=== PATIENT | male | born 1975 | race Caucasian/White ===

== ENCOUNTER 2020-07-15 13:03 | Outpatient (CLI) | payer OTHER, SELFPAY ==
--- NOTE | 2020-07-15 15:00 | NEURO_ITS ---
Patient Number: [id number] Impression: # Complains of numbness of hands, left more than right. # Bilateral Carpal Tunnel Syndrome, left more than right. # No ulnar neuropathy. # Normal needle/EMG exam. # Clinical correlation recommended. Nerve Conduction Studies Anti Sensory Summary Table Stim Site NR Peak (ms) P-T Amp (?V) Site1 Site2 Delta-P (ms) Dist (cm) [place] (m/s) Left Median Anti Sensory (2-3nd Digit) Wrist 3.7 48.6 Wrist 2-3nd Digit 3.7 14.0 38 Wrist 3.3 47.5 Wrist 2-3nd Digit 3.7 14.0 38 Right Median Anti Sensory (2-3nd Digit) Wrist 3.0 32.8 Wrist 2-3nd Digit 3.0 14.0 47 Wrist 2.8 27.9 Wrist 2-3nd Digit 3.0 14.0 47 Left Radial Anti Sensory (Base 1st Digit) Wrist 2.0 24.9 Wrist Base 1st Digit 2.0 0.0 Right Radial Anti Sensory (Base 1st Digit) Wrist 2.3 8.6 Wrist Base 1st Digit 2.3 0.0 Left Ulnar Anti Sensory (5th Digit) Wrist 2.6 84.5 Wrist 5th Digit 2.6 14.0 54 Right Ulnar Anti Sensory (5th Digit) Wrist 2.6 43.0 Wrist 5th Digit 2.6 14.0 54 Motor Summary Table Stim Site NR Onset (ms) O-P Amp (mV) Site1 Site2 Delta-0 (ms) Dist (cm) [place] (m/s) Left Median Motor (Abd Poll Brev) Wrist 4.4 0.7 Elbow Wrist 4.8 28.0 58 Elbow 9.2 0.5 Right Median Motor (Abd Poll Brev) Wrist 3.9 1.9 Elbow Wrist 4.5 28.0 62 Elbow 8.4 1.9 Left Ulnar Motor (Abd Dig Minimi) Wrist 2.3 6.1 A Elbow Wrist 4.9 30.0 61 A Elbow 7.2 4.9 Right Ulnar Motor (Abd Dig Minimi) Wrist 2.2 7.5 A Elbow Wrist 4.8 30.0 63 A Elbow 7.0 5.5 F Wave Studies NR F-Lat (ms) L-R F-Lat (ms) Left Median (Mrkrs) (Abd Poll Brev) 29.22 0.00 Right Median (Mrkrs) (Abd Poll Brev) 29.22 0.00 Left Ulnar (Mrkrs) (Abd Dig Min) 28.97 0.92 Right Ulnar (Mrkrs) (Abd Dig Min) 28.05 0.92 EMG Side Muscle Nerve Root Ins Act Fibs Amp Dur Recrt Comment Right 1stDorInt Ulnar C8-T1 Nml Nml Nml Nml Nml Right Ext Indicis Radial (Post Int) C7-8 Nml Nml Nml Nml Nml Right Ext Digitorum Radial (Post Int) C7-8 Nml Nml Nml Nml Nml Right BrachioRad Radial C5-6 Nml Nml Nml Nml Nml Right PronatorTeres Median C6-7 Nml Nml Nml Nml Nml Right Abd Poll Brev Median C8-T1 Nml Nml Nml Nml Nml Left 1stDorInt Ulnar C8-T1 Nml Nml Nml Nml Nml Left Ext Indicis Radial (Post Int) C7-8 Nml Nml Nml Nml Nml Left Ext Digitorum Radial (Post Int) C7-8 Nml Nml Nml Nml Nml Left BrachioRad Radial C5-6 Nml Nml Nml Nml Nml Left PronatorTeres Median C6-7 Nml Nml Nml Nml Nml Left Abd Poll Brev Median C8-T1 Nml Nml Nml Nml Nml Right ABD Dig Min Ulnar C8-T1 Nml Nml Nml Nml Nml Left ABD Dig Min Ulnar C8-T1 Nml Nml Nml Nml Nml MTDD
== END 2020-07-15 13:04 | disposition home or self-care (01) ==
LOC: ANHNEURO 13:06
PROVIDERS: PCP Internal Medicine; Visit Provider Orthopaedic Surgery
DX: R20.8 Other disturbances of skin sensation (principal); G56.03 Carpal tunnel syndrome, bilateral upper limbs
CPT/HCPCS: 95886; 95911

== ENCOUNTER 2020-09-01 07:51 | Outpatient (CLI) | payer OTHER, SELFPAY ==
--- NOTE | ~2020-09-01 | US_ITS ---
EXAMINATION: US right upper quadrant EXAM DATE: 09/01/2020 08:27 INDICATION: K82.8 Other specified diseases of gallbladder. TECHNIQUE: Multiple grayscale and Doppler images of the abdomen right upper quadrant were obtained (b y a technologist who performed the scan) and subsequently reviewed. There is no prior study for prabha weston. FINDINGS: The pancreatic head and body are normal in appearance. The pancreatic tail is not visualized. The l iver has normal echogenicity and contour. There are no focal liver lesions identified. There is no evidence of intrahepatic biliary duct dilation. Portal venous flow was seen in the hepatopedal, nor mal direction and has normal Doppler waveform. No right-sided hydronephrosis. Common bile duct measures 3 mm, which is normal. The gallbladder wall is normal in thickness, with ex pected amount of distention. No sonographic evidence of pericholecystic fluid. There is no cholelit hiases. Technologist performing exam reports patient did not demonstrate sonographic Monroy's sign. Please note that this sign is less reliable in patients who have received pain medication. IMPRESSION: 1. Unremarkable abdominal ultrasound exam. Reviewed, dictated and finalized at location B. GNER
== END 2020-09-01 07:52 | disposition home or self-care (01) ==
PROVIDERS: PCP Internal Medicine; Visit Provider Internal Medicine
DX: K82.8 Other specified diseases of gallbladder (principal)
CPT/HCPCS: 76705

== ENCOUNTER 2021-01-04 11:22 | Outpatient (CLI) | payer OTHER, SELFPAY ==
--- NOTE | ~2021-01-04 | XR_ITS ---
EXAMINATION: XR abdomen/kub 1V INDICATION: Passed right ureteral Stone, evaluate for additional urolithiasis TECHNIQUE: Supine views of the abdomen were obtained on 2 radiographs. COMPARISON: 12/13/2018 FINDINGS: A 6 mm stone projects in the left kidney upper pole. No definite additional urolithiasis is identified. Phleboliths are noted in the pelvis. Surgical clips in the right upper quadrant are like ly from prior cholecystectomy. The bowel gas pattern is normal. IMPRESSION: 1. Left nephrolithiasis. Reviewed, dictated and finalized at location A. [employer] IMPRESSION: 1. Left nephrolithiasis.
== END 2021-01-04 11:23 | disposition home or self-care (01) ==
LOC: ANHIMG 11:30
PROVIDERS: PCP Internal Medicine; Visit Provider Urology
DX: N20.0 Calculus of kidney (principal)
CPT/HCPCS: 74018

== ENCOUNTER 2021-01-07 11:15 | Outpatient (CLI) | payer OTHER, SELFPAY ==
[2021-01-07 11:50] LABS: INR 0.9; Prothrombin Time 12.7 Seconds (11.1-14.7)
[2021-01-07 11:51] LABS: Partial Thromboplastin Time 29.9 SECONDS (22.3-36.8)
== END 2021-01-07 11:16 | disposition home or self-care (01) ==
LOC: ANHSURGERY 11:17
PROVIDERS: PCP Internal Medicine; Visit Provider Urology
DX: Z01.812 Encounter for preprocedural laboratory examination (principal); N20.0 Calculus of kidney; Z51.81 Encounter for therapeutic drug level monitoring; Z79.899 Other long term (current) drug therapy
CPT/HCPCS: 36415; 85610; 85730; 87086

== ENCOUNTER → 2021-01-11 00:36 | Outpatient (CLI) | payer OTHER, SELFPAY ==
[2021-01-11 18:32] LABS: SARS-CoV-2 RNA PCR Negative
== END ==
PROVIDERS: PCP Internal Medicine; Visit Provider Urology
DX: Z01.812 Encounter for preprocedural laboratory examination (principal); Z20.822 Contact with and (suspected) exposure to COVID-19
CPT/HCPCS: C9803; U0003; U0005

== ENCOUNTER 2021-01-14 01:04 | Day surgery (SDC) | payer OTHER, SELFPAY ==
[2021-01-06 13:26] VITALS: BMI 29.0
--- NOTE | 2021-01-10 07:55 | P.HP_ITS ---
History of Present Illness History of Present Illness Consent: Risks, benefits, and alternatives have been discussed and questions answered. Patient agrees to proceed with procedure. Chief complaint: left renal stone Narrative: Zac Bar is a 45 year old male who is well known to our practice with multiple recurrent stones in the past. He recently presented with intermittent flank pain and imaging reveals a 6 millimeter left renal calculus. After discussion of therapeutic options he has elected to proceed with left ESWL. Review of Systems Cardiovascular: Cardiovascular: Denies chest pain, Denies lightheadedness, Denies palpitations and Denies dyspnea Respiratory: Respiratory: Denies dyspnea Gastrointestinal: Gastrointestinal: Denies diarrhea, Denies nausea and Denies vomiting Genitourinary: Genitourinary: Denies hematuria and Denies dysuria Endocrine: Endocrine: Denies palpitations PMFSH Family History Family History Mother Family history of malignant neoplasm of cervix, Onset Age: 46 Father Diabetes mellitus Family history of obesity Hypertension Patient's father is in good health Social History Social History Smoking packs per day: 1 Smoking cigarettes per day: 20.0 Years smoked: 7 Smoking pack-years: 7.00 Smoking status: Former smoker Tobacco type: cigarettes Smoking end date: 10/29/00 Alcohol intake: current Substance use: never Substance use type: does not use Spiritual care concerns: No Meds Home Medications and Allergies Home Medications Medication Instructions Recorded Confirmed Type omeprazole 40 mg capsule,delayed 40 mg PO DAILY 12/30/19 01/06/21 History release topiramate 200 mg tablet 200 mg PO DAILY 12/30/19 01/06/21 History venlafaxine 150 mg tablet,extended 150 mg PO DAILY 12/30/19 01/06/21 History release 24 hr venlafaxine 75 mg tablet,extended 75 mg PO DAILY 12/30/19 01/06/21 History release 24 hr clonazepam 0.5 mg tablet 0.5 mg PO DAILY PRN 02/24/20 01/06/21 History dextroamphetamine-amphetamine ER 15 mg PO DAILY #30 cap 12/27/20 01/06/21 Rx 15 mg 24hr capsule,extend release multivitamin 1 tablet PO DAILY 01/06/21 01/06/21 History Allergies Allergy/AdvReac Type Severity Reaction Status Date / Time No Known Allergies Allergy Verified 01/06/21 13:24 Assessment and Plan Assessment and plan (1) Left renal stone: Code(s): N20.0 - Calculus of kidney Status: Acute Assessment and Plan: * Left ESWL
[2021-01-14] VITALS (7 sets, daily range): BP systolic 102–134; BP diastolic 55–86; PULSE 70–103; RESP 11–18; TEMP 36.1–36.6; O2SAT 99–100
--- NOTE | ~2021-01-14 | XR_ITS ---
EXAMINATION: XR abdomen/kub 1V DATE: 01/14/2021 07:41 INDICATION: Kidney stone. TECHNIQUE: A single supine view of the abdomen on 2 radiographs was obtained. COMPARISON: Abdomen radiographs 01/04/2021, CT abdomen and pelvis 11/30/2018 FINDINGS: There are no dilated loops of bowel. There are phleboliths in the pelvis. Surgical clips in the right upper quadrant are likely from cholecystectomy. There is a 6 mm stone in left kidney. IMPRESSION: 1. 6 mm stone in left kidney. Reviewed, dictated and finalized at location A.
[2021-01-14] MEDS: LACTATED RINGERS 1,000 ML 30 ML IV CONT (08:00)
--- NOTE | 2021-01-14 08:18 | WPDHPUPDATE1 ---
History and Physical Update Update Date/Time: 01/14/21 08:18 History and Physical has been reviewed, including an updated exam of the patient. There are NO changes in the patient's condition. Risks, benefits, and alternatives have been discussed and questions answered. Patient agrees to proceed with procedure.
--- NOTE | 2021-01-14 08:45 | WPDANESEPPF ---
Anes - Initial Pre Proc Eval Procedure: Operation Date: 01/14/21 09:30 Proposed Procedures p Left Renal Extracorporeal Shock Wave Lithotripsy - Fred Breaux MD Date/Time: 01/14/21 08:45 Surgeon: Fred Breaux MD Pre Op Diagnosis: left renal stone Patient Data Age: 45 Gender: M Height: 5 ft 7 in Weight: 87.4 kg Last Vital Signs Temp 97.8 F 01/14/21 08:12 Pulse 86 01/14/21 08:12 Resp 18 01/14/21 08:12 BP 102/55 L 01/14/21 08:12 Pulse Ox 100 01/14/21 08:12 Allergies Allergy/AdvReac Type Severity Reaction Status Date / Time No Known Allergies Allergy Verified 01/14/21 08:15 Home Medications Medication Instructions Recorded Confirmed Type omeprazole 40 mg capsule,delayed 40 mg PO DAILY 12/30/19 01/14/21 History release topiramate 200 mg tablet 200 mg PO DAILY 12/30/19 01/14/21 History venlafaxine 150 mg tablet,extended 150 mg PO DAILY 12/30/19 01/14/21 History release 24 hr venlafaxine 75 mg tablet,extended 75 mg PO DAILY 12/30/19 01/14/21 History release 24 hr clonazepam 0.5 mg tablet 0.5 mg PO DAILY PRN 02/24/20 01/14/21 History dextroamphetamine-amphetamine ER 15 mg PO DAILY #30 cap 12/27/20 01/14/21 Rx 15 mg 24hr capsule,extend release multivitamin 1 tablet PO DAILY 01/06/21 01/14/21 History Patient hx anesthesia problems: none Family hx anesthesia problems: none PMFSH Past Medical History Medical History (Updated 01/14/21 @ 08:46 by Ollie Haywood MD) Attention deficit hyperactivity disorder (ADHD), predominantly hyperactive impulsive type Migraine Family History Family History Mother Family history of malignant neoplasm of cervix, Onset Age: 46 Father Diabetes mellitus Family history of obesity Hypertension Patient's father is in good health Social History Social History Smoking packs per day: 1 Smoking cigarettes per day: 20.0 Years smoked: 7 Smoking pack-years: 7.00 Smoking status: Former smoker Tobacco type: cigarettes Smoking end date: 10/29/00 Alcohol intake: current Alcohol use details: SOCIAL - COUPLE A MONTH Substance use: never Substance use type: does not use Living arrangements: with family Spiritual care concerns: No Anes - Eval Final PreProcedure Day of Procedure 01/14/21 08:45 Patient weight: obese Heart: regular rate and rhythm Lungs: clear to auscultation Airway: Mallampati scale class II Neurological: alert and oriented Last oral intake: >/= 8 hours ASA classification: III Anesthetic plan: proceed Anesthesia type and monitoring: general LMA and standard monitoring Informed Consent: The patient's anesthetic plan and its attendant risks and benefits were discussed with the patient/family/POA. Questions were solicited and answers provided to the satisfaction of the patient/family/POA.
[2021-01-14] MEDS: ceFAZolin 2 GM/D5W 50 ML 2 GM/50 ML BAG IVPB (09:43)
--- NOTE | 2021-01-14 10:01 | PM.PROC ---
Procedure Note - Detailed Date of procedure: 01/14/21 Pre-op diagnosis: left renal stone Post-op diagnosis: same Procedure performed: Left ESWL Description of procedure: The patient was brought to the operative suite where he was placed in the supine position on the Dornier lithotripsy table. The focal point of the lithotripter was placed at a 6mm left renal calculus. A total of 2500 shocks were delivered at a power setting of 4. There appeared to be good fragmentation of the stone. The patient tolerated the procedure well and was taken to the recovery room in good condition. Anesthesia: GLMA Surgeon: Fred Breaux MD Estimated blood loss (mL): 0 Drains: No Packing: No Pathology: none sent Complications: No immediate complications Condition: stable Disposition: PACU
== END 2021-01-14 12:02 | disposition home or self-care (01) ==
PROVIDERS: PCP Internal Medicine; Visit Provider Urology
PROC: (CPT 50590; principal; 2021-01-14 09:30)
DX: N20.0 Calculus of kidney (principal); Z87.891 Personal history of nicotine dependence
CPT/HCPCS: 50590; 36415; 74018; 85610; 85730; 87086; C9803; J0690; J1100; J2250; J2405; J2704; J3010; J7120; U0003; U0005

== ENCOUNTER 2021-01-31 10:01 | Outpatient (CLI) | payer OTHER, SELFPAY ==
--- NOTE | ~2021-01-31 | XR_ITS ---
EXAMINATION: XR abdomen/kub 1V DATE: 01/31/2021 10:18 INDICATION: Left renal stone TECHNIQUE: A supine view of the abdomen on 2 radiographs was obtained. COMPARISON: 01/14/2021 FINDINGS: A prior 6 mm left renal stone is no longer visualized and likely sequela of interval lithotripsy. No other stones/stone fragment seen in the region of either the left or right kidneys or along the cours e of the left or right ureters. A couple unchanged phleboliths in the pelvis. Cholecystectomy clips i n right upper quadrant. Normal bowel gas pattern. IMPRESSION: 1. 6 mm left renal stone no longer visualized. See. No evident residual nephrolithiasis. Reviewed, dictated and finalized at location B. IMPRESSION: 1. 6 mm left renal stone no longer visualized. See. No evident residual nephrol ithiasis.
== END 2021-01-31 10:02 | disposition home or self-care (01) ==
LOC: ANHIMG 10:05
PROVIDERS: PCP Internal Medicine; Visit Provider Urology
DX: N20.0 Calculus of kidney (principal)
CPT/HCPCS: 74018

== ENCOUNTER 2021-02-08 07:43 | Outpatient (CLI) | payer OTHER, SELFPAY ==
--- NOTE | ~2021-02-08 | CT_ITS ---
EXAMINATION: CT abdomen pelvis wo con DATE: 02/08/2021 08:04 INDICATION: Right ureteral stone TECHNIQUE: Computed tomography (CT) of the abdomen and pelvis was performed without intravenous contr ast. The dose-length product (DLP) was 279.58 mGy-cm. Automated exposure control and iterative recons truction technique were employed. COMPARISON: 11/30/2018 FINDINGS: The lung bases are clear. The heart size is normal. Surgical changes in the stomach are con sistent with bariatric surgery. The gallbladder is surgically absent. The liver, spleen, pancreas, an d adrenal glands are normal. The right kidney is unremarkable. There is a 2 mm nonobstructing stone i n the upper pole of the left kidney. No stones are present in ureters or bladder. There is no hydrone phrosis or hydroureter. No pathologically enlarged abdominal or pelvic lymph nodes are identified. Th ere is no free intraperitoneal gas or evidence of bowel obstruction. There is mild lumbar spondylosis . IMPRESSION: 1. 2 mm nonobstructing stone of the left kidney upper pole. Reviewed, dictated and finalized at location B.
== END 2021-02-08 07:44 | disposition home or self-care (01) ==
PROVIDERS: PCP Internal Medicine; Visit Provider Urology
DX: N20.2 Calculus of kidney with calculus of ureter (principal)
CPT/HCPCS: 74176

== ENCOUNTER 2021-07-27 18:21 | Emergency (ER) | payer OTHER, SELFPAY ==
--- NOTE | ~2021-07-27 | XR_ITS ---
EXAMINATION: XR tibia fibula RT 2V INDICATION: Soft tissue foreign body of the leg TECHNIQUE: Two views of the right tibia and fibula are obtained. COMPARISON: None available FINDINGS: No definite radiopaque foreign body is identified. Bone alignment is normal. There is no fr acture. IMPRESSION: 1. No definite radiopaque foreign body identified. Reviewed, dictated and finalized at location A.
[2021-07-27 18:29] VITALS: BP 125/87; PULSE 88; RESP 16; TEMP 36.7; O2SAT 100
--- NOTE | 2021-07-27 19:07 | ED.GENADULT ---
HPI - General Adult General Chief complaint: Extremity Problem,Nontraumatic Stated complaint: Wound on right leg Time Seen by Provider: 07/27/21 19:00 Source: patient, family, RN notes reviewed and old records reviewed Mode of arrival: ambulatory Limitations: no limitations History of Present Illness HPI narrative: 46-year-old male who presents to [facility] with complaints of mowing this evening and having a piece of stick or straw impaled into his right lateral mid lower leg. Patient states he is tried to remove it on his own but when he pulls on it it is very painful and he is unable to get it out of the skin. Appears to be a piece of vegetation like straw but is into the skin and can't be easily removed by pulling on it without causing pain. Patient states that his tetanus shot is not up to date and refuses booster today. MD complaint: Foreign body right leg Related Data Home Medications Medication Instructions Recorded Confirmed omeprazole 40 mg capsule,delayed 40 mg PO DAILY 12/30/19 07/27/21 release topiramate 200 mg tablet 200 mg PO DAILY 12/30/19 07/27/21 venlafaxine 150 mg tablet,extended 150 mg PO DAILY 12/30/19 07/27/21 release 24 hr clonazepam 0.5 mg tablet 0.5 mg PO DAILY PRN 02/24/20 07/27/21 multivitamin 1 tablet PO DAILY 01/06/21 07/27/21 Allergies Allergy/AdvReac Type Severity Reaction Status Date / Time No Known Allergies Allergy Verified 07/27/21 18:32 Review of Systems Review of Systems: CONSTITUTIONAL: Denies fever, chills, or sweats. EYES: Denies visual changes, redness, or discharge. ENT: Denies rhinorrhea, congestion, sore throat, or otalgia. CARDIOVASCULAR: Denies chest pain, palpitations, or edema. RESPIRATORY: Denies cough or dyspnea. GASTROINTESTINAL: Denies abdominal pain, nausea, vomiting, or diarrhea. GENITOURINARY: Denies dysuria or hematuria. SKIN: Denies rash or itching. impaled piece of straw or vegetation into right mid lower leg MUSCULOSKELETAL: Denies back pain, joint pain, or myalgia. NEUROLOGIC: Denies headache, numbness, or weakness. PSYCHIATRIC: Positive history of anxiety or depression. All systems reviewed & are unremarkable except as noted in HPI and below PMFSH Past Medical History Medical History (Updated 07/30/21 @ 16:52 by Essence Menendez NP) Anxiety and depression Attention deficit hyperactivity disorder (ADHD), predominantly hyperactive impulsive type Kidney stone Migraine Surgical History Surgical History (Updated 07/30/21 @ 16:59 by Essence Menendez NP) H/O gastric sleeve H/O lithotripsy H/O sinus surgery History of rhinoplasty History of thumb surgery fracture repair Family History Family History Mother Family history of malignant neoplasm of cervix, Onset Age: 46 Father Diabetes mellitus Family history of obesity Hypertension Patient's father is in good health Social History Social History Smoking packs per day: 1 Smoking cigarettes per day: 20.0 Years smoked: 7 Smoking pack-years: 7.00 Tobacco type: cigarettes Smoking end date: 10/29/00 Alcohol intake: current Alcohol use details: SOCIAL - COUPLE A MONTH Substance use: never Substance use type: does not use Spiritual care concerns: No Comments At time of signature, agree with nursing past medical, surgical, social and family history. There is no relevant family history pertinent to the presenting complaint Exam Narrative: GENERAL: Well-appearing, well-nourished, and in no acute distress.ANXIOUS HEAD: Normocephalic, atraumatic. EYES: PERRLA and EOMI. ENT: Nares clear, no rhinorrhea or epistaxis. Mucous membranes moist.TM's normal, throat pink with no lesions or swelling NECK: Supple. CHEST: Clear to auscultation. No respiratory distress.SAO2 100% on room air, no tachypnea or labored respirations HEART: Regular rate and rh
== END 2021-07-27 19:47 | disposition home or self-care (01) ==
PROVIDERS: Emergency Provider Registered Nurse; PCP Internal Medicine
DX: S81.841A Puncture wound with foreign body, right lower leg, initial encounter (principal); W45.8XXA Other foreign body or object entering through skin, initial encounter; F17.210 Nicotine dependence, cigarettes, uncomplicated; F41.9 Anxiety disorder, unspecified; F32.9 Major depressive disorder, single episode, unspecified
CPT/HCPCS: 73590; 99213; G0463

== ENCOUNTER 2021-08-09 18:36 | Emergency (ER) | payer OTHER, SELFPAY ==
--- NOTE | ~2021-08-09 | CT_ITS ---
EXAMINATION: CT abdomen pelvis wo con DATE: 08/09/2021 19:39 INDICATION: Left flank pain. TECHNIQUE: Computed tomography (CT) of the abdomen and pelvis was performed without intravenous contr ast. Automated exposure control and iterative reconstruction technique were employed. The dose-length product was 289.69 mGy-cm. COMPARISON: CT abdomen and pelvis 02/08/2021 FINDINGS: The visualized portions of the lung bases demonstrate mild atelectasis. No pleural effusion . The heart size is normal. No pericardial effusion. There are surgical changes in the stomach. The l iver and spleen are normal. There are changes of cholecystectomy. The pancreas, adrenal glands, and r ight kidney are normal. There is a 3 mm stone in left kidney. There is moderate left hydronephrosis a nd hydroureter. There is a 3 mm stone in proximal left ureter. There are no dilated loops of bowel. T he appendix is normal. There are no pathologically enlarged lymph nodes. There is no free intraperito amanda fluid. There is mild chronic anterior wedging of multiple thoracic vertebral bodies. There is mi ld thoracolumbar spondylosis. IMPRESSION: 1. 3 mm stone in proximal left ureter with moderate left hydronephrosis and hydroureter. 2. 3 mm nonobstructing left kidney stone. Reviewed, dictated and finalized at location A. IMPRESSION: 1. 3 mm stone in proximal left ureter with moderate left hydronephrosis and hyd roureter. 2. 3 mm nonobstructing left kidney stone.
[2021-08-09 18:47] VITALS: BP 141/97; PULSE 86; RESP 16; TEMP 36.6; O2SAT 100
[2021-08-09 19:04] LABS: Basophils Percent Auto 0.3 % (0.2-1.2); Eosinophils Absolute Auto 0.1 K/mm3 (0-0.3); Eosinophils Percent Auto 0.7 % (0-4.4); Immature Granulocyte Absolute 0.04 K/mm3 (0.00-0.031); Immature Granulocyte Percent A 0.3 % (0-0.5); Lymphocytes Absolute Auto 1.55 K/mm3 (0.9-3.2); Lymphocytes Percent Auto 11.7 % (18.3-44.2); Mean Corpuscular Hemoglobin 31.6 pg (26-34); Mean Corpuscular Volume 92.9 fl (80-100); Mean Platelet Volume 9.1 fl (7.4-10.4); Monocytes Absolute Auto 0.8 K/mm3 (0.1-0.6); Monocytes Percent Auto 6.3 % (2.6-8.5); Neutrophils Absolute Auto 10.7 K/mm3 (1.3-6.7); Neutrophils Percent Auto 80.7 % (45.5-73.1); Platelet Count Result 253 k/mm3 (150-375); Red Blood Count 5.06 M/mm3 (4.6-6.20); Red Cell Distribution Width 13.2 % (11.5-14.5); White Blood Count 13.3 K/mm3 (4.5-10.0)
--- NOTE | 2021-08-09 19:16 | ED.ABDPAIN ---
HPI - Abdominal Pain General Chief Complaint: Abdominal Pain Stated Complaint: left flank pain Time Seen by Provider: 08/09/21 19:14 Source: patient Mode of arrival: ambulatory Limitations: no limitations History of Present Illness HPI narrative: 46-year-old male history of renal stones complaining of sudden onset of left flank pain approximately 10 AM today. Pain constant, colicky, rating to the left lower quadrant. No hematuria no dysuria no vomiting no fever. Patient states he seen urology for kidney stones but no stents in the past. MD elicited complaint: flank pain Pertinent past history: kidney stones Onset (ago): hour(s) (9) Pain Consistency: constant Location: LLQ and L flank Severity: similar to previous episodes Quality: sharp Radiation: LLQ Exacerbating factors: nothing Relieving factors: other (Hydrocodone without relief.) Associated symptoms: nausea Treatments prior to arrival: prescription analgesics (hydrocodone) Related Data Home Medications Medication Instructions Recorded Confirmed omeprazole 40 mg capsule,delayed 40 mg PO DAILY 12/30/19 08/25/21 release topiramate 200 mg tablet 200 mg PO DAILY 12/30/19 08/25/21 venlafaxine 150 mg tablet,extended 150 mg PO DAILY 12/30/19 08/25/21 release 24 hr clonazepam 0.5 mg tablet 0.5 mg PO DAILY PRN 02/24/20 08/25/21 multivitamin 1 tablet PO DAILY 01/06/21 08/25/21 Allergies Allergy/AdvReac Type Severity Reaction Status Date / Time No Known Allergies Allergy Verified 08/25/21 10:14 Review of Systems Review of Systems: CONSTITUTIONAL: no fever, no weight loss, no confusion EYES: no vision changes, no eye pain ENT: no rhinorrhea, no sore throat, no difficulty swallowing CARDIOVASCULAR: no chest pain, no leg edema, no palpitations RESPIRATORY: no cough, no shortness of breath, no hemoptysis GASTROINTESTINAL: no abdominal pain, positive for nausea, no vomiting, no diarrhea GENITOURINARY: L flank pain, no dysuria, no hematuria SKIN: no rash, no jaundice MUSCULOSKELETAL: no back pain, no trauma. NEUROLOGIC: No headache, no dizziness, no focal weakness PSYCHIATRIC: No hallucinations, no suicidal ideation PMFSH Past Medical History Medical History Anxiety and depression Attention deficit hyperactivity disorder (ADHD), predominantly hyperactive impulsive type Kidney stone Migraine Surgical History Surgical History H/O gastric sleeve H/O lithotripsy H/O sinus surgery History of rhinoplasty History of thumb surgery fracture repair Family History Family History Mother Family history of malignant neoplasm of cervix, Onset Age: 46 Father Diabetes mellitus Family history of obesity Hypertension Patient's father is in good health Social History Social History Smoking packs per day: 1 Smoking cigarettes per day: 20.0 Years smoked: 7 Smoking pack-years: 7.00 Smoking status: Former smoker Tobacco type: cigarettes Smoking end date: 10/29/00 Alcohol intake: current Alcohol use details: SOCIAL - COUPLE A MONTH Substance use: never Substance use type: does not use Spiritual care concerns: No Exam Narrative: General: alert, afebrile, answering all questions appropriately Head: normocephalic, atraumatic Eyes: EOMI bilaterally, anicteric, no injection ENT: moist mucous membranes, oropharynx patent, no rhinorrhea Neck: supple, trachea midline, no JVD Chest: equal chest rise bilaterally, no chest wall trauma noted Lungs: clear to auscultation bilaterally, respirations unlabored CV: regular rate, no TARAH B, calf size equal bilaterally Abd: soft, non-distended, non-tender, no rebound, no gaurding : L CVA tenderness, bladder non-distended Back: no lumbar bony tenderness. paraspinal muscles without spasm E
[2021-08-09 19:19] VITALS: BP 121/88; PULSE 90; RESP 18; O2SAT 100
[2021-08-09 19:31] LABS: Anion Gap 7 mmol/L (8-16); Blood Urea Nitrogen 17 mg/dL (9-20); Calcium 9.1 mg/dL (8.4-10.2); Carbon Dioxide 27 mmol/L (22-30); Chloride 109 mmol/L (98-107); Estimated CRCL calculation 67 ml/min; Estimated Glomerular Filt Rate > 60; Glucose 108 mg/dL (65-110); Potassium 4.4 mmol/L (3.4-5.0); Sodium 143 mmol/L (137-145)
[2021-08-09] MEDS: ONDANSETRON INJ 4 MG/2 ML VIAL IV PUSH (19:31)
[2021-08-09] MEDS: SODIUM CHLORIDE 0.9% IV 1,000 ML 999 ML IV CONT (19:31)
[2021-08-09] MEDS: KETOROLAC 30 MG/ML VIAL (*BKC) IV PUSH (19:31)
--- NOTE | 2021-08-09 20:52 | PC.NURSE ---
EDP at bedside.
--- NOTE | 2021-08-09 21:00 | PC.NURSE ---
Pt reports passing stone while using restroom. States his pain has resolved, rates 0/10.
[2021-08-09 21:01] VITALS: BP 134/85; PULSE 96; RESP 16; O2SAT 100
[2021-08-09 21:10] LABS: Add Urine Microscopic? YES; Appearance Urine Clear (Clear); Bilirubin Urine Negative (Negative); Blood Urine 2+ (Negative); Calcium Oxalate Crystals Urine Present /hpf; Color Urine Yellow (Yellow); Glucose Urine UA Negative (Negative); Ketones Urine Negative (Negative); Leukocyte Esterase Ur Negative LEU/UL (Negative); Mucus Urine Rare /lpf; Nitrate Urine Negative (Negative); Protein Urine 1+ mg/dL (Negative); RBC Urine 21-50 /hpf (0-2); Squamous Epithelial Cell Urine Rare /hpf (Few); WBC Urine 0-3 /hpf
== END 2021-08-09 19:30 | disposition home or self-care (01) ==
PROVIDERS: Emergency Provider Emergency Medicine; PCP Internal Medicine
DX: N20.1 Calculus of ureter (principal); F41.9 Anxiety disorder, unspecified; F32.9 Major depressive disorder, single episode, unspecified; Z87.442 Personal history of urinary calculi
CPT/HCPCS: 36415; 74176; 80048; 81001; 85025; 96361; 96374; 96375; 99284; J1885; J2405; J7030

== ENCOUNTER 2021-10-15 13:17 | Emergency (ER) | payer OTHER, SELFPAY ==
[2021-10-15 13:33] VITALS: BP 134/84; PULSE 94; RESP 16; TEMP 36.9; O2SAT 100
--- NOTE | 2021-10-15 13:59 | ED.URI ---
HPI - URI/Sore Throat General Chief Complaint: Upper Respiratory Infection Stated Complaint: Lt Ear Pain,Sore Throat Source: patient and RN notes reviewed Limitations: no limitations History of Present Illness HPI Narrative: The unvaccinated patient, a current non-smoker/ occ drinker, this was upper respiratory complaints. Patient states he has a 1 week history of scratchy sore throat, congestion with ear fullness; he had Covid disease pneumonia in the past and several negative rapid test this week. No fever, cough; no loss of taste/smell, CP, S OB, vomiting/diarrhea. Symptoms are mild Related Data Home Medications Medication Instructions Recorded Confirmed omeprazole 40 mg capsule,delayed 40 mg PO DAILY 12/30/19 10/15/21 release topiramate 200 mg tablet 200 mg PO DAILY 12/30/19 10/15/21 venlafaxine 150 mg tablet,extended 150 mg PO DAILY 12/30/19 10/15/21 release 24 hr clonazepam 0.5 mg tablet 0.5 mg PO DAILY PRN 02/24/20 10/15/21 multivitamin 1 tablet PO DAILY 01/06/21 10/15/21 Allergies Allergy/AdvReac Type Severity Reaction Status Date / Time No Known Allergies Allergy Verified 10/15/21 13:31 Review of Systems Review of Systems: General/Constitutional: No weight loss,fever Eyes: N0: Redness,discharge Ears/Nose/Throat: No: Epistaxis,ear discharge Respiratory: Denies: Hemoptysis Gastrointestinal: No Vomiting, Bleeding-rectal Skin: No Lumps, eruption Neurologic: No Focal Weakness,Sz Hematologic: Denies: Petechiae/Purpura Psychiatric: No: Suicida ideationl All Other Systems: Reviewed and Negative [facility] Past Medical History Medical History Anxiety and depression Attention deficit hyperactivity disorder (ADHD), predominantly hyperactive impulsive type Kidney stone Migraine Surgical History Surgical History H/O gastric sleeve H/O lithotripsy H/O sinus surgery History of rhinoplasty History of thumb surgery fracture repair Family History Family History Mother Family history of malignant neoplasm of cervix, Onset Age: 46 Father Diabetes mellitus Family history of obesity Hypertension Patient's father is in good health Social History Social History Smoking packs per day: 1 Smoking cigarettes per day: 20.0 Years smoked: 7 Smoking pack-years: 7.00 Smoking status: Former smoker Tobacco type: cigarettes Smoking end date: 10/29/00 Alcohol intake: current Alcohol use details: SOCIAL - COUPLE A MONTH Substance use: never Substance use type: does not use Spiritual care concerns: No Comments At time of signature, agree with nursing past medical, surgical, social and family history. There is no relevant family history pertinent to the presenting complaint Exam Narrative: General Appearance: Well appearing, Well nourished EYE: PERRLA, Conjunctiva clear Ears: Auditory canal normal, TM normal Nose: Rhinorrhea, Mucousal erythema Mouth/Throat: MM moist, Uvula midline, Pharyngeal erythema ] Neck: Supple, No adenopathy Respiratory: No respiratory distress, Breath sounds equal, Clear to auscultation Cardiovascular: RRR, No JVD Musculoskeletal: Non tender, Normal strength Skin: Warm, Dry Neurological: A&O x3, CN II-XII intact Psychiatric: Normal mood, Normal affect Course Vital Signs Vital signs: Vital Signs Temperature 98.4 F 10/15/21 13:33 Pulse Rate 94 10/15/21 13:33 Respiratory Rate 16 10/15/21 13:33 Blood Pressure 134/84 10/15/21 13:33 Pulse Oximetry 100 10/15/21 13:33 Temperature 98.4 F 10/15/21 13:33 Pulse Rate 94 10/15/21 13:33 Respiratory Rate 16 10/15/21 13:33 Blood Pressure 134/84 10/15/21 13:33 Pulse Oximetry 100 10/15/21 13:33 Discharge Plan Discharge Clinical Impression:
== END 2021-10-15 14:04 | disposition home or self-care (01) ==
PROVIDERS: Emergency Provider Emergency Medicine; PCP Internal Medicine
DX: R07.0 Pain in throat (principal); Z87.891 Personal history of nicotine dependence; F41.9 Anxiety disorder, unspecified; F32.A Depression, unspecified; Z98.84 Bariatric surgery status
CPT/HCPCS: 99213; G0463

== ENCOUNTER 2022-02-25 10:01 | Emergency (ER) | payer OTHER, SELFPAY ==
[2022-02-25 10:12] VITALS: BP 132/81; PULSE 91; RESP 18; TEMP 36.3; O2SAT 100
--- NOTE | 2022-02-25 10:21 | ED.GENADULT ---
HPI - General Adult General Chief complaint: Upper Respiratory Infection Stated complaint: nasal congestion,sorethroat Time Seen by Provider: 02/25/22 10:04 Source: patient Mode of arrival: ambulatory Limitations: no limitations History of Present Illness HPI narrative: Patient presents for evaluation of respiratory symptoms for the last week. Symptoms include sinus congestion, thick mucopurulent discharge from both nares, sore throat, occasional productive cough of yellow/green sputum. She denies any fever, chills, nausea, vomiting, chest pain, shortness of breath. 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 He had COVID in April of last year. He has not received flu nor COVID vaccine. He is a former smoker but quit 20 years ago. He has tried allergy medication and mucinex. He has also tried a [place] pot. He has temporary relief of symptoms with recurrence about ten mins after sinus irrigation. He took two home COVID tests, both of which were negative. He states he has had similar symptoms in the past and has always required abx therapy. Related Data Home Medications Medication Instructions Recorded Confirmed topiramate 200 mg tablet 200 mg PO HS 12/30/19 02/25/22 venlafaxine 150 mg tablet,extended 150 mg PO DAILY 12/30/19 02/25/22 release 24 hr Klonopin 02/25/22 dextroamphetamine-amphetamine 15 mg PO DAILY 02/25/22 02/25/22 [Adderall XR] omeprazole 40 mg PO DAILY 02/25/22 02/25/22 verapamil 02/25/22 Allergies Allergy/AdvReac Type Severity Reaction Status Date / Time No Known Allergies Allergy Verified 02/25/22 10:22 Review of Systems Review of Systems: CONSTITUTIONAL: Denies fever, chills, or sweats. EYES: Denies visual changes, redness, or discharge. ENT: Reports sinus congestion, thick mucopurulent discharge from nares and sore throat CARDIOVASCULAR: Denies chest pain, palpitations, or edema. RESPIRATORY: Reports occasional productive cough of thick yellow/green sputum. Denies dyspnea. GASTROINTESTINAL: Denies abdominal pain, nausea, vomiting, or diarrhea. GENITOURINARY: Denies dysuria or hematuria. SKIN: Denies rash or itching. MUSCULOSKELETAL: Denies back pain, joint pain, or myalgia. NEUROLOGIC: Denies headache, numbness, dizziness, or weakness. PSYCHIATRIC: Denies anxiety or depression. [facility]ENDING S[facility] TO [facility] Past Medical History Medical History Anxiety and depression Attention deficit hyperactivity disorder (ADHD), predominantly hyperactive impulsive type Kidney stone Migraine Surgical History Surgical History H/O gastric sleeve H/O lithotripsy H/O sinus surgery History of rhinoplasty History of thumb surgery fracture repair Family History Family History Mother Family history of malignant neoplasm of cervix, Onset Age: 46 Father Diabetes mellitus Family history of obesity Hypertension Patient's father is in good health Social History Social History Smoking packs per day: 1 Smoking cigarettes per day: 20.0 Years smoked: 7 Smoking pack-years: 7.00 Smoking status: Former smoker Tobacco type: cigarettes Smoking end date: 10/29/00 Alcohol intake: current Alcohol use details: SOCIAL - COUPLE A MONTH Substance use: never Substance use type: does not use Spiritual care concerns: No Exam Narrative: GENERAL: Well-appearing, well-nourished, and in no acute distress. HEAD: Normocephalic, atraumatic. EYES: PERRLA and EOMI. ENT: Nares clear, no rhinorrhea or epistaxis. Mucous membranes moist. Oropharynx without tonsillar hypertrophy exudate or other lesions. Bilateral TMs pearly velez nonbulging NECK: Supple. No adenopathy or masses. No carotid bruits or JVD CHEST: Clear to aus
== END 2022-02-25 10:35 | disposition home or self-care (01) ==
PROVIDERS: Emergency Provider Nurse Practitioner; PCP Internal Medicine
DX: J01.90 Acute sinusitis, unspecified (principal); Z87.891 Personal history of nicotine dependence
CPT/HCPCS: 87081; 87880; 99213; G0463

== ENCOUNTER → 2022-06-19 06:53 | Outpatient (CLI) | payer OTHER, SELFPAY ==
--- NOTE | ~2022-06-19 | MR_ITS ---
EXAMINATION: MR hip LT wo con DATE: 06/19/2022 07:50 INDICATION: Left groin pain TECHNIQUE: Magnetic resonance imaging (MRI) of the left hip was performed without intravenous contra st. Sequences included full-field axial PD-weighted FS FSE and T1-weighted FSE, coronal of the pelvis with PD-weighted FS FSE, T2-weighted FSE and T1-weighted FSE, small field of view of the left hip w ith axial PD-weighted FS FSE, sagittal PD-weighted FS FSE, coronal PD-weighted FS FSE and coronal T2 weighted FSE. Additional radial T1-weighted FGR oriented orthogonal to the acetabular rim were obtai desirae for evaluation of the labrum. COMPARISON: None FINDINGS: Bones/labrum/cartilage: Alignment is normal. No fracture, avascular necrosis or pathologic marrow replacing process. Labrum is normal. Mild partial-thickness cartilage loss anterosuperiorly at the left hip with smooth chondra l surface and without degenerative subchondral changes. Mild lower lumbar spondylosis. Fluid: Symmetric physiologic amount of fluid within both hip joints. No bursitis or other abnormal fluid col lections. Soft tissues: Normal and symmetric muscle bulk and signal in the pelvis and visualized proximal thighs. The iliopso as, gluteal and proximal hamstring tendons are normal. Limited evaluation of visceral organs of the p ramírez is unremarkable. No pathologically enlarged pelvic/inguinal lymphadenopathy. IMPRESSION: 1. Very mild left hip osteoarthritis. Reviewed, dictated and finalized at location A.
== END ==
PROVIDERS: PCP Internal Medicine; Visit Provider Orthopaedic Surgery
DX: M16.12 Unilateral primary osteoarthritis, left hip (principal)
CPT/HCPCS: 73721

== ENCOUNTER 2023-01-17 16:31 | Emergency (ER) | payer BC, SELFPAY ==
[2023-01-17 16:42] VITALS: BP 118/76; PULSE 106; RESP 16; TEMP 36.3; O2SAT 99
--- NOTE | 2023-01-17 17:05 | ED.WOUNDLAC ---
HPI - Wound/Laceration General Chief Complaint: Wound/Laceration Stated Complaint: forehead laceration,fall Time Seen by Provider: 01/17/23 16:50 Source: patient Mode of arrival: ambulatory Limitations: no limitations History of Present Illness HPI narrative: 47-year-old male presents with laceration to forehead. Reports that injury happened approximately 1 hour prior to arrival. States that he was putting something on to his trailer and the battery of his drill hit him in for head. Did not realize that he had a laceration and was bleeding until a little bit after injury occurred. Denies headache. No LOC. Denies dizziness. All systems reviewed and negative except as noted above. Related Data Home Medications Medication Instructions Recorded Confirmed topiramate 200 mg tablet (Topamax) 200 mg PO HS 12/30/19 01/17/23 venlafaxine 150 mg tablet,extended 150 mg PO DAILY 12/30/19 01/17/23 release 24 hr omeprazole 40 mg capsule,delayed 40 mg PO DAILY 02/25/22 01/17/23 release verapamil 150 mg PO DAILY 02/25/22 01/17/23 tirzepatide 5 mg/0.5 mL 5 mg subcut WEEKLY 10/09/22 01/17/23 subcutaneous pen injector (Mounjaro) metoprolol succinate 25 mg 25 mg PO DAILY 01/17/23 01/17/23 tablet,extended release 24 hr Allergies Allergy/AdvReac Type Severity Reaction Status Date / Time No Known Allergies Allergy Verified 01/17/23 16:46 Review of Systems Review of Systems: CONSTITUTIONAL: Denies fever, chills, or sweats. EYES: Denies visual changes, redness, or discharge. ENT: Denies rhinorrhea, congestion, sore throat, or otalgia. CARDIOVASCULAR: Denies chest pain, palpitations, or edema. RESPIRATORY: Denies cough or dyspnea. GASTROINTESTINAL: Denies abdominal pain, nausea, vomiting, or diarrhea. GENITOURINARY: Denies dysuria or hematuria. SKIN: Denies rash or itching. Reports laceration to forehead. MUSCULOSKELETAL: Denies back pain, joint pain, or myalgia. NEUROLOGIC: Denies headache, numbness, or weakness. PSYCHIATRIC: Denies anxiety or depression. All other systems reviewed are negative, except as documented in HPI. [facility] Past Medical History Medical History (Updated 01/17/23 @ 17:02 by Irena Dubois NP) Attention deficit hyperactivity disorder (ADHD), predominantly hyperactive impulsive type Kidney stone Migraine Surgical History Surgical History H/O gastric sleeve H/O lithotripsy H/O sinus surgery History of rhinoplasty History of thumb surgery fracture repair Family History Family History Mother Family history of malignant neoplasm of cervix, Onset Age: 46 Father Diabetes mellitus Family history of obesity Hypertension Patient's father is in good health Social History Social History (Updated 10/09/22 @ 14:31 by JADE Ibarra) Smoking packs per day: 1 Smoking cigarettes per day: 20.0 Years smoked: 7 Smoking pack-years: 7.00 Smoking status: Never smoker Tobacco type: cigarettes Smoking end date: 10/29/00 Alcohol intake: current Alcohol use details: SOCIAL - COUPLE A MONTH Substance use: never Substance use type: does not use Lack of Transportation: No Lack of Food: Never True Current Housing: I Have Housing Concerned About Future Housing: No Difficulty Paying Gas/Electric Bills: No Difficulty Paying for Meds: No Currently Unemployed: No Education: Bachelor's Degree Difficulty w/ Childcare or Family Care: No Living arrangements: with family Spiritual care concerns: No Comments At time of signature, agree with nursing past medical, surgical, social and family history. There is no relevant family history pertinent to the presenting complaint. Exam Narrative: GENERAL: This is a well-nourished, well-developed patient, in no apparent distress. HEAD: normocephalic, atraumatic. EYES: PE
== END 2023-01-17 17:04 | disposition home or self-care (01) ==
PROVIDERS: Emergency Provider Nurse Practitioner Family
DX: S01.81XA Laceration without foreign body of other part of head, initial encounter (principal); F17.210 Nicotine dependence, cigarettes, uncomplicated; W27.8XXA Contact with other nonpowered hand tool, initial encounter
CPT/HCPCS: 12011; 99212; G0463

== ENCOUNTER 2023-07-29 08:09 | Emergency (ER) | payer BC, SELFPAY ==
[2023-07-29 08:25] VITALS: BP 118/78; PULSE 93; RESP 18; TEMP 36.3; O2SAT 100
--- NOTE | 2023-07-29 08:54 | ED.URI ---
HPI - URI/Sore Throat General Chief Complaint: Ear Stated Complaint: congestion,lt ear pain Time Seen by Provider: 07/29/23 08:42 Source: patient and RN notes reviewed Mode of arrival: ambulatory Limitations: no limitations History of Present Illness HPI Narrative: Patient presents today with a 3 day history of left-sided sore throat, congestion, postnasal drip, left ear pain. Denies cough, fever. He has been using Mucinex and Neti pot without much relief. Patient works at a daycare. Related Data Home Medications Medication Instructions Recorded Confirmed topiramate 200 mg tablet (Topamax) 200 mg PO HS 12/30/19 01/17/23 venlafaxine 150 mg tablet,extended 150 mg PO DAILY 12/30/19 01/17/23 release 24 hr omeprazole 40 mg capsule,delayed 40 mg PO DAILY 02/25/22 01/17/23 release verapamil 150 mg PO DAILY 02/25/22 01/17/23 tirzepatide 5 mg/0.5 mL 5 mg subcut WEEKLY 10/09/22 01/17/23 subcutaneous pen injector (Anjelica) metoprolol succinate 25 mg 25 mg PO DAILY 01/17/23 01/17/23 tablet,extended release 24 hr Allergies Allergy/AdvReac Type Severity Reaction Status Date / Time No Known Allergies Allergy Verified 01/17/23 16:46 Review of Systems Review of Systems: CONSTITUTIONAL: Denies body aches, fever, chills, or sweats. EYES: Denies visual changes, redness, or discharge. ENT: Denies rhinorrhea. + congestion, postnasal drip, left ear pain, sore throat CARDIOVASCULAR: Denies chest pain, palpitations, or edema. RESPIRATORY: Denies cough or dyspnea. GASTROINTESTINAL: Denies abdominal pain, nausea, vomiting, or diarrhea. GENITOURINARY: Denies dysuria or hematuria. SKIN: Denies rash, itching, or wounds. MUSCULOSKELETAL: Denies back pain, joint pain, or myalgia. NEUROLOGIC: Denies headache, numbness, tingling, or weakness. PSYCH: Denies depression or anxiety. [facility] Past Medical History Medical History Attention deficit hyperactivity disorder (ADHD), predominantly hyperactive impulsive type Kidney stone Migraine Surgical History Surgical History H/O gastric sleeve H/O lithotripsy H/O sinus surgery History of rhinoplasty History of thumb surgery fracture repair Family History Family History Mother Family history of malignant neoplasm of cervix, Onset Age: 46 Father Diabetes mellitus Family history of obesity Hypertension Patient's father is in good health Social History Social History Smoking packs per day: 1 Smoking cigarettes per day: 20.0 Years smoked: 7 Smoking pack-years: 7.00 Smoking status: Never smoker Tobacco type: cigarettes Smoking end date: 10/29/00 Alcohol intake: current Alcohol use details: SOCIAL - COUPLE A MONTH Substance use: never Substance use type: does not use Lack of Transportation: No Lack of Food: Never True Current Housing: I Have Housing Concerned About Future Housing: No Difficulty Paying Gas/Electric Bills: No Difficulty Paying for Meds: No Currently Unemployed: No Education: Bachelor's Degree Difficulty w/ Childcare or Family Care: No Living arrangements: with family Spiritual care concerns: No Comments At time of signature, I have reviewed and agree with nursing past medical, surgical, social and family history unless otherwise noted. Please see nursing chart for further information. There is no relevant family history pertinent to the presenting complaint Exam Narrative: GENERAL: Mildly ill-appearing, well-nourished, and in no acute distress. HEAD: Normocephalic, atraumatic. EYES: EOMI. No redness or drainage. Conjunctivae normal. ENT: Mucous membranes pink and moist. Nares congested. No rhinorrhea. TMs normal bilaterally. Throat normal wi
== END 2023-07-29 09:10 | disposition home or self-care (01) ==
PROVIDERS: Emergency Provider Nurse Practitioner
DX: J06.9 Acute upper respiratory infection, unspecified (principal); F17.210 Nicotine dependence, cigarettes, uncomplicated
CPT/HCPCS: 87081; 87880; 99213; G0463

== ENCOUNTER 2023-10-12 11:44 | Emergency (ER) | payer BC, SELFPAY ==
[2023-10-12 11:56] VITALS: BP 115/72; PULSE 91; RESP 16; TEMP 36.1; O2SAT 100
--- NOTE | 2023-10-12 12:00 | ED.URI ---
HPI - URI/Sore Throat General Chief Complaint: Upper Respiratory Infection Stated Complaint: drainage, coughing Time Seen by Provider: 10/12/23 12:00 Source: patient Mode of arrival: ambulatory Limitations: no limitations History of Present Illness HPI Narrative: 48-year-old male presents with complaint of sinus congestion, postnasal drainage, sinus pressure for the past 10 days. Reports sore throat, cough. States blowing green from nose for the past 3-4 days. Taking Zyrtec, Mucinex with no relief of symptoms. Has done a few Neti pots. Reports history of recurrent sinusitis. Afebrile. All systems reviewed and negative except as noted above. Related Data Home Medications Medication Instructions Recorded Confirmed topiramate 200 mg tablet (Topamax) 200 mg PO HS 12/30/19 10/12/23 venlafaxine 150 mg tablet,extended 150 mg PO DAILY 12/30/19 10/12/23 release 24 hr omeprazole 40 mg capsule,delayed 40 mg PO DAILY 02/25/22 10/12/23 release tirzepatide 5 mg/0.5 mL 5 mg subcut WEEKLY 10/09/22 10/12/23 subcutaneous pen injector (Mounjaro) metoprolol succinate 25 mg 25 mg PO DAILY 01/17/23 10/12/23 tablet,extended release 24 hr Allergies Allergy/AdvReac Type Severity Reaction Status Date / Time No Known Allergies Allergy Verified 10/12/23 11:52 Review of Systems Review of Systems: CONSTITUTIONAL: Denies fever, chills, or sweats. reports fatigue. EYES: Denies visual changes, redness, or discharge. ENT: Reports rhinorrhea, congestion, sore throat, bilateral otalgia. CARDIOVASCULAR: Denies chest pain, palpitations, or edema. RESPIRATORY: Reports cough. Denies dyspnea. GASTROINTESTINAL: Denies abdominal pain, nausea, vomiting, or diarrhea. GENITOURINARY: Denies dysuria or hematuria. SKIN: Denies rash or itching. MUSCULOSKELETAL: Denies back pain, joint pain, or myalgia. NEUROLOGIC: Denies headache, numbness, or weakness. PSYCHIATRIC: Denies anxiety or depression. All other systems reviewed are negative, except as documented in HPI. [facility] Past Medical History Medical History Attention deficit hyperactivity disorder (ADHD), predominantly hyperactive impulsive type Kidney stone Migraine Surgical History Surgical History H/O gastric sleeve H/O lithotripsy H/O sinus surgery History of rhinoplasty History of thumb surgery fracture repair Family History Family History Mother Family history of malignant neoplasm of cervix, Onset Age: 46 Father Diabetes mellitus Family history of obesity Hypertension Patient's father is in good health Social History Social History Smoking packs per day: 1 Smoking cigarettes per day: 20.0 Years smoked: 7 Smoking pack-years: 7.00 Smoking status: Never smoker Tobacco type: cigarettes Smoking end date: 10/29/00 Alcohol intake: current Alcohol use details: SOCIAL - COUPLE A MONTH Substance use: never Substance use type: does not use Lack of Transportation: No Lack of Food: Never True Current Housing: I Have Housing Concerned About Future Housing: No Difficulty Paying Gas/Electric Bills: No Difficulty Paying for Meds: No Currently Unemployed: No Education: Bachelor's Degree Difficulty w/ Childcare or Family Care: No Living arrangements: with family Spiritual care concerns: No Comments At time of signature, agree with nursing past medical, surgical, social and family history. There is no relevant family history pertinent to the presenting complaint. Exam Narrative: GENERAL: This is a well-nourished, well-developed patient, in no apparent distress. HEAD: normocephalic, atraumatic. EYES: PERRL. Sclera clear/white. Vision is grossly intact. EARS: Exte
== END 2023-10-12 12:08 | disposition home or self-care (01) ==
PROVIDERS: Emergency Provider Nurse Practitioner Family
DX: H66.91 Otitis media, unspecified, right ear (principal); J01.90 Acute sinusitis, unspecified; F90.9 Attention-deficit hyperactivity disorder, unspecified type; Z87.891 Personal history of nicotine dependence
CPT/HCPCS: 99213; G0463

== ENCOUNTER 2024-01-13 09:37 | Emergency (ER) | payer BC, SELFPAY ==
[2024-01-13 09:50] VITALS: BP 130/86; PULSE 101; RESP 16; TEMP 36.5; O2SAT 100
--- NOTE | 2024-01-13 10:25 | ED.URI ---
HPI - URI/Sore Throat General Chief Complaint: Upper Respiratory Infection Stated Complaint: Sinus Time Seen by Provider: 01/13/24 10:15 Source: patient and RN notes reviewed Mode of arrival: ambulatory Limitations: no limitations History of Present Illness HPI Narrative: Patient presents today with a 2 week history of sinus congestion and pressure, sore throat, left ear pain, fatigue. States his nasal secretions have transition from clear to green in the last 3 days. Denies cough or fever. He has been taking Zyrtec, Flonase, Mucinex, and using a Neti pot without much relief. Related Data Home Medications Medication Instructions Recorded Confirmed topiramate 200 mg tablet (Topamax) 200 mg PO HS 12/30/19 10/12/23 venlafaxine 150 mg tablet,extended 150 mg PO DAILY 12/30/19 10/12/23 release 24 hr omeprazole 40 mg capsule,delayed 40 mg PO DAILY 02/25/22 10/12/23 release tirzepatide 5 mg/0.5 mL 5 mg subcut WEEKLY 10/09/22 10/12/23 subcutaneous pen injector (Mounnellaro) Allergies Allergy/AdvReac Type Severity Reaction Status Date / Time No Known Allergies Allergy Verified 01/13/24 09:55 Review of Systems Review of Systems: CONSTITUTIONAL: Denies body aches, fever, chills, or sweats.+ fatigue EYES: Denies visual changes, redness, or discharge. ENT: + sore throat, left ear pain, sinus pressure, rhinorrhea. CARDIOVASCULAR: Denies chest pain, palpitations, or edema. RESPIRATORY: Denies cough or dyspnea. GASTROINTESTINAL: Denies abdominal pain, nausea, vomiting, or diarrhea. GENITOURINARY: Denies dysuria or hematuria. SKIN: Denies rash, itching, or wounds. MUSCULOSKELETAL: Denies back pain, joint pain, or myalgia. NEUROLOGIC: Denies headache, numbness, tingling, or weakness. PSYCH: Denies depression or anxiety. [facility] Past Medical History Medical History Attention deficit hyperactivity disorder (ADHD), predominantly hyperactive impulsive type Kidney stone Migraine Surgical History Surgical History H/O gastric sleeve H/O lithotripsy H/O sinus surgery History of rhinoplasty History of thumb surgery fracture repair Family History Family History Mother Family history of malignant neoplasm of cervix, Onset Age: 46 Father Diabetes mellitus Family history of obesity Hypertension Patient's father is in good health Social History Social History Smoking packs per day: 1 Smoking cigarettes per day: 20.0 Years smoked: 7 Smoking pack-years: 7.00 Smoking status: Never smoker Tobacco type: cigarettes Smoking end date: 10/29/00 Alcohol intake: current Alcohol use details: SOCIAL - COUPLE A MONTH Substance use: never Substance use type: does not use Lack of Transportation: No Lack of Food: Never True Current Housing: I Have Housing Concerned About Future Housing: No Difficulty Paying Gas/Electric Bills: No Difficulty Paying for Meds: No Currently Unemployed: No Education: Bachelor's Degree Difficulty w/ Childcare or Family Care: No Living arrangements: with family Spiritual care concerns: No Comments At time of signature, I have reviewed and agree with nursing past medical, surgical, social and family history unless otherwise noted. Please see nursing chart for further information. There is no relevant family history pertinent to the presenting complaint Exam Narrative: GENERAL: Mildly ill-appearing, well-nourished, and in no acute distress. HEAD: Normocephalic, atraumatic. EYES: EOMI. No redness or drainage. Conjunctivae normal. ENT: Mucous membranes pink and moist. Nares congested. Bilateral maxillary sinus tenderness. Bilateral erythematous and edematous nasal turbinates. No rhinorrhea.
== END 2024-01-13 10:35 | disposition home or self-care (01) ==
PROVIDERS: Emergency Provider Nurse Practitioner
DX: J01.00 Acute maxillary sinusitis, unspecified (principal); Z87.891 Personal history of nicotine dependence; Z98.84 Bariatric surgery status
CPT/HCPCS: 99213; G0463

== ENCOUNTER 2025-03-09 14:35 | Outpatient (CLI) | payer BC, SELFPAY ==
--- NOTE | ~2025-03-09 | XR_ITS ---
3 VIEWS LUMBAR SPINE Ordering provider: Joaquin Mcguire, [place] History: . Neck and low back pain . Comparison: None. FINDINGS: VERTEBRAL BODIES: No visible fracture or subluxation. Degenerative changes of the spine. DISK SPACES: Slightly narrowed T12-L1, L1-L2 and L5-S1. SOFT TISSUES: Normal. IMPRESSION: No acute osseous abnormality lumbar spine. Degenerative disc disease at the level of T12-L1, L1-L2 and L5-S1. Reviewed, dictated and finalized at location A.
--- NOTE | ~2025-03-09 | XR_ITS ---
EXAM: XR thoracic spine 3V DATE: 03/09/2025 15:02 HISTORY: Neck and low back pain . COMPARISON: CT abdomen pelvis 08/09/2021. FINDINGS: Vertebral body alignment intact. Exaggerated thoracic kyphosis. Decreased mineralization. Moderate height loss/anterior wedge deformity at T9. Chronic mild height loss at T8, T10, and T11 Mul tilevel disc space narrowing and marginal osteophytosis. Cholecystectomy clips. Visualized lung paren chyma is clear. IMPRESSION: Kyphosis. Osteopenia. Moderate anterior wedge deformity at T9, may represent acute or chr onic compression fracture. Correlate with pain/tenderness. Reviewed, dictated and finalized at location K. IMPRESSION: Kyphosis. Osteopenia. Moderate anterior wedge deformity at T9, may represent acute or chronic compression fracture. Correlate with pain/tenderness .
--- OUTSIDE RECORDS SUMMARY | 2025-03-09 14:40 | XMS_ITS | Clinical Summary ---
Author Organization [facility] Address Formerly [facility] [place] [address] Care Team Providers Care Business Specialist Name Role Phone Francois Gooden MD Primary Care Provider [phone] Allergies No known active allergies Medications ondansetron 4 MG disintegrating tablet Take 1 tablet (4 mg total) by mouth every 8 (eight) hours as needed for Nausea. 20 tablet 1 Active dicyclomine 20 MG tablet Take 1 tablet (20 mg total) by mouth every 6 (six) hours. 30 tablet 1 Active albuterol sulfate HFA 108 (90 Base) MCG/ACT inhaler Inhale 2 puffs into the lungs every 6 (six) hours as needed for Wheezing. 18 g 1 Active Social History Tobacco Use Types Packs/Day Years Used Date Smoking Tobacco: Former Smokeless Tobacco: Never Alcohol Use Standard Drinks/Week Comments Not Currently 0 (1 standard drink = 0.6 oz pur e alcohol) Sex and Gender Information Value Date Recorded Sex Assigned at Not on file Legal Sex Male 6:49 PM CDT Gender Identity Not on file Sexual Orientation Not on file Last Filed Vital Signs Vital Sign Reading Time Taken Comments Blood Pressure 120/78 05/14/2021 3:00 PM CDT Pulse 118 05/14/2021 12:22 PM CDT Temperature 36.9 C (98.4 F) 05/14/2021 12:22 PM CDT Respiratory Rate 18 05/14/2021 3:00 PM CDT Oxygen Saturation 92% 05/14/2021 3:00 PM CDT Inhaled Oxygen Concentration - - Weight 81.6 kg (180 lb) 05/14/2021 12:22 PM CDT Height 167.6 cm (5' 6 ) 05/14/2021 12:22 PM CDT Body Mass Index 29.05 05/14/2021 12:22 PM CDT Plan of Treatment Health Maintenance Due Date Last Done Comments Colorectal Cancer Screening Colonoscopy (10 Years) 1976 Annual Physical 02/28/1979 Hepatitis C 02/28/1994 DTaP, Tdap and Td Vaccines ( 1 - Tdap) 02/28/1995 Hepatitis B Vaccines (1 of 3 - 19+ 3-dose series) 02/28/1995 COVID-19 Vaccine ( - 2023-2 5 season) 2024 Meningococcal B Vaccine Aged Out No l onger eligible based on patient's age to complete this topic Meningococcal Vaccine Aged Out No michelle xuan eligible based on patient's age to complete this topic Pneumococcal Vaccine: Pediat rics (0 to 5 Years) and At-Risk Patients (6 to 49 Years) Aged Out No longer eligible b ased on patient's age to complete this topic RSV Immunizations Under 20 Months Aged Out No longer eligible based on patient's age to complete this topic Insurance [facility] Care Teams Business Specialist Relationship Specialty Start Date End Date Francois Gooden MD [address] [place] [address] PCP - General INTERNAL MEDICINE 05/12/21
--- OUTSIDE RECORDS SUMMARY | 2025-03-09 14:40 | XMS_ITS | Encounter Summary ---
Author Organization [facility] Address [facility] [place] [address] Care Team Providers Care Winder Fixer Name Role Phone Francois Gooden MD Primary Care Provider [phone] Encounter Details Date Type Department Care Team (Latest Contact Info) Description 07/02/2018 Abstract [facility] , Siobhan Rose MD Social History Tobacco Use Types Packs/Day Years Used Date Smoking Tobacco: Never Assessed Sex and Gender Information Value Date Recorded Sex Assigned at Not on file Legal Sex Male 6:49 PM CDT Gender Identity Not on file Sexual Orientation Not on file documented as of this encounter Plan of Treatment Not on file documented as of this encounter Visit Diagnoses Not on filedocumented in this encounter Care Teams Winder Fixer Relationship Specialty Start Date End Date Francois Gooden MD [address] [place] [address] PCP - General INTERNAL MEDICINE 05/12/21 documented as of this encounter
--- OUTSIDE RECORDS SUMMARY | 2025-03-09 14:40 | XMS_ITS | Encounter Summary ---
Author Organization [facility] Address [address] [place] [address] Care Team Providers Care Ar Manager Name Role Phone Nam Colindres MD Primary Care Provider [phone] Encounter Details Date Type Department Care Team (Late st Contact Info) Description 01/02/2022 Lab Requisition [facility] [address] [place] [id number] Sree Amado MD [address] [place] [address] Social History Tobacco Use Types Packs/Day Years Used Date Smoking Tobacco: Former Cigarettes 2000 Smokeless Tobacco: Never Sex and Gender Information Value Date Recorded Sex Assigned at Not on file Legal Sex Male 6:30 AM CDT Gender Identity Not on file Sexual Orientation Not on file documented as of this encounter Plan of Treatment Not on file documented as of this encounter Procedures Procedure Name Priority Date/Time Associated Diagnosis Comments DERMATOPATHOLOGY Routine 12/30/2021 12:0 0 AM KNITTED CLOTH EXAMINER documented in this encounter Results * DERMATOPATHOLOGY (12/30/2021 12:00 AM KNITTED CLOTH EXAMINER) Case Report Dermatopathology Report Case: [id number] Authorizing Provider: Sree Amado MD Collected: 12/30/2021 12:00 AM Ordering Location: [facility] Received: 01/02/2022 04:12 PM Pathologist: Meri Abarca MD Specimen: Skin, abdomen 2 3:53 PM [facility] Final Diagnosis Specimen A. 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 Path # [id number]. 2 3:53 PM [facility] Gross Description Specimen A: Received is one formalin filled container labeled with the patient's name and designated abdomen. The specimen consists of a shave biopsy measuring [id number]. Jar 0. 3:53 PM [facility] Microscopic Description Specimen A. SKIN, abdomen: There are scattered dyskeratotic keratinocytes and vacuolar alteration along the basal cell layer. There is overlying focal neutrophilic parakeratosis. In addition, an underlying band-like infiltrate composed mostly of lymphocytes focally obscures the dermal-epidermal junction. Antitreponemal antibody stain fails to highlight spirochetes in the available sections. Grocott's methenamine silver (GMS) and Tissue Gram stains fail to highlight fungal or bacterial elements in the available sections. Additional deeper sections were obtained and reviewed. 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 Clinicopathologic correlation is recommended. 2 3:53 PM [facility] Disclaimer An external and internal positive and negative controls are appropriate for the histochemical, immunohistochemical and immunofluorescence stain(s) in this case (if any), except where stated explicitly. The performance characteristics of the stain(s) cited in this report were developed and its performance characteristic determined by the Dermatopathology Laboratory at [facility], directed by Dr. Adam Moore. These tests need not be, and therefore are not, approved by the [place] Food and Drug Administration. The tests are used for clinical purposes. Billing Codes Specimen Charges Stain Charges 97549 1 00373 28120 37004 1 1 1 2 3:53 PM [facility] Embedded Images 2 3:53 PM [facility] Pathology/Cytolog y TISSUE SPECIMEN FROM SKIN / Unknown 12/30/2021 01/02/2022 4:12 PM KNITTED CLOTH EXAMINER us Sree Amado MD LAB - PATHOLOGY/CYTOLOGY ORDER NURY Final Result DERMATOPATHOLOGY LABORATORY [facility] Department of Dermatology [facility] Medicine [facility] [facility], [address]rd Floor [address] [phone] documented in this encounter Visit Diagnoses Not on filedocumented in this encounter Care Teams Ar Manager Relationship Specialty Start Date End Date Nam Colindres MD [address] [place] [address] DR [address] [address] PCP - General Internal Medicine 03/09/17 documented as of this encounter
--- OUTSIDE RECORDS SUMMARY | 2025-03-09 14:40 | XMS_ITS | Clinical Summary ---
Author Organization [email or web address] Address [address] [place] [address] Care Team Providers Care Testing Director Name Role Phone Nam Colindres MD Primary Care Provider [phone] Source Comments [email or web address],non-owned Affiliates and Associated Physician Practices is amultiple site organization consisting of ambulatory clinics and hospital sitesin [place], [place], [place] and [place]. This disclosure is being madepursuant to the Care Everywhere program and may not contain all information available regarding this patient. Last updated 18.[email or web address] Allergies No known active allergies Medications * Be aware that medications may not be up to date on this document. Alwaysverify current medications with the patient. Topiramate (TOPAMAX PO) Active VERAPAMIL HCL ER, CO, PO Active Venlafaxine HCl (EFFEXOR XR PO) Acti ve clonazePAM (KLONOPIN) 0.5 MG tablet Take 0.5 mg by mouth 2 times daily Active predniSONE (DELTASONE) 20 MG tabletIndication s:eustachian tube dysfunction Take two tablets PO BID x 4 days Reasons: eustachian tube dysfunction 16 tablet 7 Active Family History Medical History Relation Name Comments Cancer - Other Mother Diabetes - Type 2 Mother Relation Name Status Comments Mother Social History Tobacco Use Types Packs/Day Years Used Date Smoking Tobacco: Former Cigarettes 1 - 2000 Smokeless Tobacco: Never Sex and Gender Information Value Date Recorded Sex Assigned at Not on file Legal Sex Male 6:30 AM CDT Gender Identity Not on file Sexual Orientation Not on file Last Filed Vital Signs Vital Sign Reading Time Taken Comments Blood Pressure 126/92 09/27/2017 6:15 PM PATIENT CASE MANAGER Pulse 96 09/27/2017 6:15 PM PATIENT CASE MANAGER Temperature 36.7 C (98.1 F) 09/27/2017 6:15 PM PATIENT CASE MANAGER Respiratory Rate 16 09/27/2017 6:15 PM PATIENT CASE MANAGER Oxygen Saturation 98% 09/27/2017 6:15 PM PATIENT CASE MANAGER Inhaled Oxygen Concentration - - Weight 90.7 kg (200 lb) 09/27/2017 6:15 PM PATIENT CASE MANAGER Height 167.6 cm (5' 6 ) 09/27/2017 6:15 PM PATIENT CASE MANAGER Body Mass Index 32.28 09/27/2017 6:15 PM PATIENT CASE MANAGER Plan of Treatment Health Maintenance Due Date Last Done Comments COLOGUARD (AGES 45-75) - COL ON CA SCREENING 1976 COLON MONITORING 1976 COLONOSCOPY - COLON CA SCREENING 1976 CT COLONOGRAPHY - COLON CA SCREENING 1976 Colorectal Cancer Screening 1976 FIT - COLON CA SCREENING 1976 FLEX SIG - COLON CA SCREENING 1976 LIPID TESTING 1976 HIV SCREENING 02/28/1991 HEPATITIS C SCREENING 02/24/1994 DTAP/TDAP/TD VACCINES (1 - Tdap) 02/28/1995 HEPATITIS B VACCINE (1 of 3 - 19+ 3-dose series) 02/28/1995 SCREENING FOR DIABETES 09/06/2017 COVID-19 VACCINE (1 - 2023-2 5 season) 2024 DEPRESSION SCREENING 10/29/2024 INFLUENZA VACCINE (Season Ended) 2025 ZOSTER VACCINE (1 of 2) 02/28/2026 HIB VACCINE Aged Out No longer eligi ble based on patient's age to complete this topic HPV VACCINE Aged Out No longer eligi ble based on patient's age to complete this topic MENINGOCOCCAL (Group B) VACC INE SHARED DECISION-MAKING Aged Out No longer eligibl e based on patient's age to complete this topic MENINGOCOCCAL GROUPS A/C/Y/W VACCINE Aged Out No longer eligible b ased on patient's age to complete this topic Insurance [facility] Advance Directives Documents on File Type Date Recorded Patient Transformer Assembler Expl anation Adv Directive/Living Will/POA 03/09/2017 Care Teams Testing Director Relationship Specialty Start Date End Date Nam Colindres MD [address] [place] [address] DR Ellison ELDA [address] [place] [id number] PCP - General Internal Medicine 03/09/17
--- OUTSIDE RECORDS SUMMARY | 2025-03-09 14:41 | XMS_ITS | CONTINUITY OF CARE DOCUMENT ---
Author Name johnson ornelas Address Unknown Organization [facility] Address [address] [place] [address] [address] [place] [address] Phone [phone] Care Team Providers Care Lock And Dam Repairer Name Role Phone Rodolfo Kline MD Unavailable CINDY III DONANO Unavailable [phone] CINDY III DONANO Unavailable [phone] VITAL SIGNS Date Observation Value Provider weight E&M 180 [lb_av] Sukilyndsay Vincent height E&M 66 [in_i] uSki Vincent INSURANCE PROVIDERS Payer name Policy type / Coverage type Olegario red alliance party ID [facility] [id number]
--- OUTSIDE RECORDS SUMMARY | 2025-03-09 14:41 | XMS_ITS | Data Portability ---
Author Organization [place] [facility] [employer], Main Office Address [address] [place] [address] Assessment Encounter Date Assessment Date Assessment LastModified by Organization Details LastModified Time 12/17/2024 12/17/2024 49-year-old patient presents today with left elbow pain that has been going on for about 1 month. He denies any injury. He states that sometimes the pain radiates up to his shoulder through the bicep. He has been having pain with lifting objects, pronation, and if he bumps it against something. The pain is keeping him awake at night. He rates it 7/10. For treatment he has tried ibuprofen as needed which did not help. He denies any issues with this elbow in the past. Review of systems per patient questionnaire Imaging: X-rays reviewed of the left shoulder and left elbow show no acute bony abnormality, no fracture. Preserved joint spaces throughout. Physical exam: No bruising or edema. Pain with palpitation over lateral epicondyle. Pain with resisted wrist extension. Hook sign intact. No pain with palpitation along bicep, no deformity. No pain with gentle shoulder ROM. Sensation intact. He is experiencing lateral epicondylitis. We discussed the for treatment we will try some physical therapy exercises. He would like to do these at home on his own. We provided him with lateral epicondylitis and shoulder handouts. Since ibuprofen was not working for him we will try meloxicam. He can also try Voltaren gel and a counterforce strap. We will try these therapies for about 6 weeks and if he is still experiencing pain he can return for a cortisone injection with micro needling. He is in agreement with this plan. [email or web address] Not available 12/17/2024 14:39:20 Plan of Treatment Reminders Order Date Submit Date Provider Last Modified By Organization Details Last Modified Time Details Appointments None recorded. Lab None recorded. Referral None recorded. Procedures None recorded. Surgeries None recorded. Imaging XR, shoulder 2024 025 [id number] [facility] [place], [address], [address], 5 10:26:41 XR, elbow 2024 025 [id number] [facility] [place], [address], [address], 5 10:26:41 Medication Orders Mobic 15 mg tablet 2024 025 [id number] [id number], [address] [facility], [place], [place], [id number], 10:26:41 Patient TargetsNo targets recorded. Patient InstructionsNo instructions recorded. Reason for Referral None Reported. Results Created Date Observation Date Name Description Value Unit Range Abnormal Flag Note LastModifiedBy Organization Detail LastModifiedTime 05/26/20 22 XR, hip + pelvi s, unila teral No observ ation record ed. [id number] [facility] [place] [address], [place], [address], 12/27/2022 13:54:13 06/19/20 22 06/19/2022 MRI, hip, w/o contr ast No observ ation record ed. [id number] [facility] [address], [place], [address], 12/27/2022 13:54:13 12/17/19 25 XR, shoul anoop No observ ation record ed. [email or web address] [facility] [place] [address], [address], 12/17/2024 14:17:32 12/17/19 25 XR, elbow No observ ation record ed. [email or web address] [facility] [place] [address], [place], [address], 12/17/2024 14:17:38 Result Notes None recorded. Problems Name Problem SNOMED Code Status Onset Date Resolution Date Notes Provider Name and Address Organization Details Recorded Time [place] - lesion 833593996 Active 2021 Not Available [facility] 3 13:52:33 Pain in toe 268096766 Active Not Available [facility] 3 13:52:33 Pain of left hip joint 63651210891031 0 Active 2021 Not Available [facility] 3 13:52:33 Pain of toe of right foot 17842727934031 1 Active 2021 Not Available [facility] 3 13:52:33 Foot pain 10159054 Active 2021 Not Available [facility] 3 13:52:33 Pain in limb 85190494 Active Not Available [facility] 3 13:52:33 Pain of left shoulder joint 09568051422417 109 Active 2024 DOUG Gallegos, [place] - [facility] [employer] 5 10:33:05 Pain of left elbow joint 60238274376014 104 Active 2024 KVNG GallegosA null, [place] - [facility] [employer] 5 10:51:26 Problem Notes None recorded. Procedures Surgical History Date Name Laterality Status Provider Name and Address Organization Details Recorded Time laparoscopic sleeve gastrectomy completed Pita Devine CNA [place] [facility] [employer] 12/17/2024 10:31:37 Imaging Results Imaging Date Name Status LastModified by [facility] Details LastModified Time 05/26/2022 XR, hip + pelvis, unilateral completed [id number] [facility] [place] [address], [place], [address], 12/27/2022 13:54:13 06/19/2022 MRI, hip, w/o contrast completed [id number] [facility] [address], [place], [address], 12/27/2022 13:54:13 12/17/2024 XR, shoulder completed [email or web address] [facility] [place] [address], [place], [address], 12/17/2024 14:17:32 12/17/2024 XR, elbow completed [email or web address] [facility] [place] [address], [place], [address], 12/17/2024 14:17:38 Procedure Notes None recorded. Medical Equipment None Reported. Allergies No known drug allergies Medications Name Sig Start Date Stop Date Status Note LastModified by Organization Details LastModified Time cyclobenzap rine 10 mg tablet Take 1 tablet PO TID PRN pain active Not Available Not Available No t Available prednisone 10 mg tablet active Not Available Not Available Not Available venlafaxine ER 75 mg capsule,ext ended release 24 hr 05/06 completed Not Available Not Available Not Available doxycycline hyclate 100 mg capsule TAKE 1 CAPSULE BY MOUTH DAILY WITH A MEAL. DO NOT LIE DOWN UNTIL 1 HOUR AFTER TAKING active Not Available Not Available No t Available azithromyci n 250 mg tablet TK 2 TS PO ON DAY 1, THEN TK 1 T PO D FOR 4 DAYS 12/17 completed Not Available Not Available Not Available Lidocaine Viscous 2 % mucosal solution GARGLE 5 ML ON MUCOUS MEMBRANES THEN SPIT OUT FOUR TIMES DAILY NEEDED FOR PAIN 03/06 completed Not Available Not Available Not Available ofloxacin 0.3 % eye drops 03/06 completed Not Available Not Available Not Available fluconazole 150 mg tablet TAKE 1 TABLET BY MOUTH DAILY FOR 14 DAYS 12/17 completed Not Available Not Available Not Available sumatriptan 100 mg tablet 05/19 completed Not Available Not Available Not Available cephalexin 250 mg capsule TAKE 1 CAPSULE BY MOUTH EVERY 6 HOURS FOR 7 DAYS 03/06 completed Not Available Not Available Not Available meloxicam 15 mg tablet TAKE 1 TABLET BY MOUTH EVERY DAY active Not Available Not Available No t Available prednisone 20 mg tablet TAKE 1 TABLET BY MOUTH EVERY DAY 12/17 completed Not Available Not Available Not Available clonazepam 0.5 mg tablet 05/06 completed Not Available Not Available Not Available venlafaxine ER 150 mg capsule,ext ended release 24 hr TAKE 1 CAPSULE BY MOUTH DAILY active Not Available Not Available No t Available omeprazole 40 mg capsule,del ayed release TAKE 1 CAPSULE BY MOUTH EVERY DAY BEFORE A MEAL active Not Available Not Available No t Available amoxicillin 875 mg tablet TAKE 1 TABLET BY MOUTH EVERY 12 HOURS FOR 7 DAYS 12/17 completed Not Available Not Available Not Available prednisolon e acetate 1 % eye drops,suspe nsion 03/06 completed Not Available Not Available Not Available dicyclomine 20 mg tablet 03/06 completed Not Available Not Available Not Available benzonatate 100 mg capsule TAKE 1 CAPSULE BY MOUTH THREE TIMES DAILY NEEDED FOR COUGH 03/06 completed Not Available Not Available Not Available desoximetas one 0.25 % topical ointment APPLY TO ABDOMEN DAILY 03/06 completed Not Available Not Available Not Available cephalexin 500 mg capsule TAKE 1 CAPSULE BY MOUTH EVERY 12 HOURS FOR 10 DAYS 03/06 completed Not Available Not Available Not Available oseltamivir 75 mg capsule 03/06 completed Not Available Not Available Not Available topiramate 200 mg tablet TAKE 1 TABLET BY MOUTH AT BEDTIME active Not Available Not Available No t Available azelastine 137 mcg (0.1 %) nasal spray USE 1 SPRAY IN EACH NOSTRIL EVERY 12 HOURS DIRECTED 03/06 completed Not Available Not Available Not Available methylpredn isolone 4 mg tablets in a dose pack FOLLOW PACKAGE DIRECTION S 03/06 completed Not Available Not Available Not Available albuterol sulfate HFA 90 mcg/actuati on aerosol inhaler INHALE 2 PUFFS BY MOUTH EVERY 6 HOURS NEEDED FOR WHEEZING 03/06 completed Not Available Not Available Not Available doxycycline hyclate 20 mg tablet TAKE 1 TABLET BY MOUTH TWICE DAILY 1 HOUR BEFORE A MEAL OR 2 HOURS AFTER A MEAL 12/17 completed Not Available Not Available Not Available dextroamphe tamine-amph etamine ER 30 mg 24hr capsule,ext end release 05/06 completed Not Available Not Available Not Available ondansetron 4 mg disintegrat ing tablet DISSOLVE ONE TABLET ON TOP OF THE TONGUE EVERY 8 HOURS PRN active Not Available Not Available No t Available doxycycline hyclate 100 mg tablet TAKE 1 TABLET BY MOUTH TWICE DAILY FOR 14 DAYS PRN 01/22 completed Not Available Not Available Not Available dextroamphe tamine-amph etamine 5 mg tablet TK 1 T PO D PRN AT NOON 05/19 completed Not Available Not Available Not Available amoxicillin 875 mg-potassiu m clavulanate 125 mg tablet TAKE 1 TABLET BY MOUTH EVERY 12 HOURS 01/22 completed Not Available Not Available Not Available dextroamphe tamine-amph etamine ER 15 mg 24hr capsule,ext end release TAKE 1 CAPSULE BY MOUTH EVERY DAY IN THE MORNING UPON AWAKENING active Not Available Not Available No t Available venlafaxine ER 75 mg tablet,exte nded release 24 hr 05/19 completed Not Available Not Available Not Available Xigduo XR 10 mg-1,000 mg tablet,exte nded release 05/06 completed Not Available Not Available Not Available Mounjaro 5 mg/0.5 mL subcutaneou s pen injector INJECT 5MG SUBCUTANE OUSLY EVERY WEEK active Not Available Not Available No t Available Mounjaro 2.5 mg/0.5 mL subcutaneou s pen injector INJECT 2.5MG UNDER THE SKIN WEEKLY DIRECTED 12/17 completed Not Available Not Available Not Available Vitals Date Recorded Body mass index (BMI) Body height Body weight Provider Name and Address Organization Details Last Updated DateTime 05/26/2022 33.1 kg/m2 162.56 cm 85669.33 g Not Available [facility] 12/27/2022 13:52:12 Date Recorded Body mass index (BMI) Body height Body weight Provider Name and Address Organization Details Last Updated DateTime 06/29/2022 33.1 kg/m2 162.56 cm 18957.33 g Not Available [facility] 12/27/2022 13:52:12 Date Recorded Body height Provider Name an d Address Organization Details Last Updated DateTime 06/28/2022 162.56 cm Not Available [facility] 13:52:12 Date Recorded Body height Provider Name an d Address Organization Details Last Updated DateTime 08/09/2022 162.56 cm Not Available [facility] 13:52:12 Date Recorded Body height Body mass index (BMI) Body weight Provider Name and Address Organization Details Last Updated DateTime 12/17/2024 167.64 cm 24.9 kg/m2 48572.22 margaret Pita Devine CNA [place] [facility] [place] [employer] 12/17/2024 10:27:13 Social History None recorded. Functional Status Question Answer Note LastModified by Organizat ion Details LastModified Time What is your level of alcohol consumption? Occasional [email or web address] Information not available 12/17/2024 Mental Status None recorded. Family History Nothing Reported. Medical History Condition Response BLINDNESS N KIDNEY STONES N MRSA N CARPAL TUNNEL SYNDROME N LUNG DISEASE/DISORDER N HISTORY OF DRUG ABUSE N RADIATION / CHEMOTHERAPY N COPD N SPORTS INJURY N ANKLE PAIN N BLOOD DISEASES N SCHIZOPHRENIA N SHINGLES N BOWEL PROBLEMS N SHOULDER PAIN N DEPRESSION (INCLUDING POST ) N STROKE/TIA N KNEE PAIN N ULCERS N BENIGN PROSTATIC HYPERPLASIA N OBESITY N GERD/NAUSEA N ANEURYSM N URINARY/BLADDER/KIDNEY PROBLEMS N CORONARY ARTERY DISEASE (CAD) N ADDICTION CONCERNS N USE OF BLOOD THINNERS N SKIN PROBLEMS N EMPHYSEMA N MUSCLE,JOINT OR BONE PROBLEMS N DVT N STOMACH ULCERS N BLOOD CLOTS N USE OF NSAIDS N CONCUSSION OR SPINAL TRAUMA N NEUROPATHY N AIDS/HIV N FRACTURES N ELBOW PAIN N HYPERTENSION N TOURETTE'S N ANXIETY DISORDER N Metal allergy N BLOOD TRANSFUSION N ANEMIA/BLOOD DISORDER N BIPOLAR DISORDER N BRONCHITIS N OSTEOARTHRITIS N TUBERCULOSIS N FOOT PROBLEM N HEART VALVE DISORDERS N ALLERGIES/HAYFEVER N SOFT TISSUE INJURY N INFECTIOUS DISEASE N HEART ARRHYTHMIA N INSOMNIA N RHEUMATOID ARTHRITIS N HIGH CHOLESTEROL / HYPERLIPIDEMIA N EDEMA N CHRONIC PAIN SYNDROME N CAROTID BLOCKAGE N BACK / NECK PROBLEMS N HAVE YOU BEEN HOSPITALIZED OR SEEN IN [facility] ER IN THE PAST YEAR ? N BURSITIS N HERNIATED DISC N DIALYSIS N FIBROMYALGIA N OSTEOPOROSIS N ARTHRITIS N NO SIGNIFICANT PAST MEDICAL HISTORY N PERIPHERAL NEUROPATHY N DIABETES, TYPE N HEARTBURN / REFLUX N HEPATITIS / LIVER DISEASE N GOUT N SLEEP DISORDER N ALZHEIMER'S DISEASE N HERPES N SEIZURES/EPILEPSY N HEADACHES/MIGRAINES N VASCULAR DISEASE N HIP PAIN N Blood Disorder N DIZZINESS N HEAD TRAUMA OR INJURY N HEART DISEASE/HEART PROBLEMS N MULTIPLE SCLEROSIS N CARDIAC ARRHYTHMIA N CANCER: SPECIFY N ANESTHESIA COMPLICATIONS N ATRIAL FIBRILLATION N AUTOIMMUNE DISEASE N Past Encounters Encounter ID Performer Location Encounter Start Date Encounter Closed Date Diagnosis/Indication Diagnosis SNOMED-CT Code Diagnosis ICD10 Code Diagnosis Note [id number] [facility] [place] [address] [place], [place] [address] 03/06/2022 00:00:00 03/06/2022 11:02:27 [id number] Kevin Tariq MD [facility] [place] [address] [place], [place] [address] 05/26/2022 00:00:00 05/26/2022 16:49:13 [id number] Kevin Tariq MD [facility] [place] [address] [place] [address] 06/28/2022 00:00:00 06/28/2022 10:01:21 [id number] [facility] [place] [address] [place] [address] 06/29/2022 00:00:00 07/03/2022 14:38:30 [id number] Kevin Tariq MD [facility] [place] [address] [place] [address] 08/09/2022 00:00:00 08/09/2022 08:47:00 [id number] Azeem Brandon MD [facility] [place] [address] [place], [place] [address] 12/17/2024 10:16:29 12/17/2024 11:10:14 Pain of left shoulder joint [id number] [id number] M25.512 Pain of le ft elbow joint 7694349846 7171987 M25.522 Health Concerns Section Related Observation LastModified by Organization Detai ls LastModified Time None Recorded Concern Status LastModified by Organization Details LastModified Time None Recorded Advance Directives Directive None Recorded Payers Encounter Date Sequence Insurance Name Policy Number Policy Arndt Covered Member ID Arndt Member ID Guarantor Name 12/17/2024 1 [employer] [id number] Zac Bar [id number] Zac Bar
== END 2025-03-09 14:36 | disposition home or self-care (01) ==
LOC: ANHIMG 14:39
PROVIDERS: Visit Provider Chiropractor
DX: M85.88 Other specified disorders of bone density and structure, other site (principal); M51.34 Other intervertebral disc degeneration, thoracic region; M51.379 Other intervertebral disc degeneration, lumbosacral region without mention of lumbar back pain or lower extremity pain
CPT/HCPCS: 72072; 72114

== ENCOUNTER 2025-06-16 07:21 | Outpatient (CLI) | payer BC, SELFPAY ==
--- NOTE | ~2025-06-16 | MR_ITS ---
EXAMINATION: MR shoulder LT wo con DATE: 06/16/2025 07:50 INDICATION: Left shoulder rotator cuff tear with 6 months of left shoulder pain TECHNIQUE: Magnetic resonance imaging (MRI) of the left shoulder was performed without intravenous contrast. Sequences included axial PD-weighted FS FSE, coronal oblique PD-weighted FS FSE, coronal oblique T2-weighted FS FSE, sagittal PD-weighted FS FSE, and sagittal T1-weighted SE. COMPARISON: None. FINDINGS: Coracoacromial arch: The acromion undersurface is curved in morphology (type II) with anterior downsloping. The coracoacromial ligament is normal. Mild acromioclavicular osteoarthritis with very small inferiorly directed marginal osteophyte at the lateral head of the clavicle which exerts mass effect upon the underlying le praspinatus muscle belly. Rotator cuff: Mild tendinopathy without discrete tear at the distal supraspinatus tendon. The infraspinatus and teres minor tendons are normal. The subscapularis tendon is normal. Normal rotator cuff muscle bulk and signal. Biceps tendon, glenoid labrum and glenohumeral cartilage: Long head of the biceps tendon is normal. Glenoid labrum is normal. Glenohumeral cartilage is normal. Fluid: Physiologic amount of fluid in the glenohumeral joint and biceps tendon sheath. No loose osteochondral bodies. No abnormal fluid signal in the subacromial/subdeltoid bursa to suggest bursitis. Bones/other: Normal marrow signal with no edema, fracture or pathologic marrow replacing process. Mild cystic change underlying the superior facet footplate of the supraspinatus tendon at the greater tuberosity. There is thickening of the capsule at the axillary recess which can be seen in setting of adhesive capsu litis. There is however no abnormal loss of T1 fat signal at the rotator cuff interval which is a second typical finding of adhesive capsulitis. IMPRESSION: 1. Mild distal supraspinatus tendinopathy without discrete tear. 2. Thickening of the joint capsule at the axillary recess which can be a finding of adhesive capsulitis but without abnormal soft tissue replacing the normal fat signal at the rotator cuff interval which is a second typical finding of adhesive capsulitis. Ultimately this is a clinical diagnosis. Reviewed, dictated and finalized at location A. IMPRESSION: 1. Mild distal supraspinatus tendinopathy without discrete tear. 2. Thickening of the joint capsule at the axillary recess which can be a findin g of adhesive capsulitis but without abnormal soft tissue replacing the normal fat signal at the rotator cuff interval which is a second typical finding of ad hesive capsulitis. Ultimately this is a clinical diagnosis.
== END 2025-06-16 07:22 | disposition home or self-care (01) ==
LOC: MICIMG 07:23
PROVIDERS: Visit Provider Chiropractor
DX: M67.814 Other specified disorders of tendon, left shoulder (principal)
CPT/HCPCS: 73221